=== PATIENT | male | born 1970 | race Caucasian/White ===

== ENCOUNTER 2024-08-09 08:57 | Emergency (ER) | payer BC ==
[2024-08-09] MEDS: Acetaminophen 325 MG Tab PO ONE (09:54)
[2024-08-09] MEDS: Dexamethasone 4 MG/ML SDV IM ONE (11:05)
== END 2024-08-09 11:12 | disposition home or self-care (01) ==
LOC: DL.ED 08:57
DX: U07.1 COVID-19 (principal); Z88.1 Allergy status to other antibiotic agents
CPT/HCPCS: 71046; 87635; 87804; 96372; 99283; A9270; J1100; U0002